=== PATIENT | female | born 2000 | race American Indian/Alaskan Native ===

== ENCOUNTER 2021-01-20 15:15 | Outpatient (CLI) | payer MEDICAID ==
[2021-01-20] MEDS ORDERED: LACTATED RINGERS 500 ML IV ONE (16:30)
[2021-01-20 16:44] VITALS: BP 104/50
[2021-01-20 18:02] LABS: Bilirubin,Urine NEG (Negative); Blood,Urine NEG (Negative); Color,Urine Straw (Yellow); Protein,Urine <15 mg/dL mg/dL (Negative); Urobilinogen,Urine < 2.0 mg/dL (<2.0); WBC,Urine < 1.0 /HPF (0.0-6.0)
== END 2021-01-20 17:00 | disposition home or self-care (01) ==
LOC: TRG 15:15 → APU 16:31 → TRG 17:00
PROVIDERS: ATTEND Obstetrics & Gynecology
DX: Z34.93 Encounter for supervision of normal pregnancy, unspecified, third trimester (principal); Z3A.35 35 weeks gestation of pregnancy
CPT/HCPCS: 59025; 81001

== ENCOUNTER 2021-01-29 05:36 | Outpatient (CLI) | payer MEDICAID ==
[2021-01-29 08:34] VITALS: BP 107/65
== END 2021-01-29 09:19 | disposition home or self-care (01) ==
LOC: TRG 05:36 → APU 05:43 → TRG 09:19
PROVIDERS: ATTEND Obstetrics & Gynecology
DX: Z34.93 Encounter for supervision of normal pregnancy, unspecified, third trimester (principal); Z3A.37 37 weeks gestation of pregnancy
CPT/HCPCS: 59025

== ENCOUNTER 2021-02-16 11:39 | Outpatient (CLI) | payer MEDICAID ==
[2021-02-16 12:25] VITALS: BP 117/70
[2021-02-16 13:21] LABS: Bacteria,Urine 1+ /HPF (Negative); Bilirubin,Urine NEG (Negative); Blood,Urine NEG (Negative); Color,Urine Yellow (Yellow); Mucus,Urine FEW /HPF; Protein,Urine <15 mg/dL mg/dL (Negative); Urobilinogen,Urine < 2.0 mg/dL (<2.0)
[2021-02-16] MEDS ORDERED: LIDOCAINE-MPF (1%) 10 MG/1 ML VIAL 5 ML INFILTRATI NR (13:30)
== END 2021-02-16 14:20 | disposition home or self-care (01) ==
LOC: TRG 11:39 → APU 11:40 → TRG 14:20
PROVIDERS: ATTEND Obstetrics & Gynecology
DX: O26.893 Other specified pregnancy related conditions, third trimester (principal); R10.2 Pelvic and perineal pain; M54.9 Dorsalgia, unspecified; Z3A.39 39 weeks gestation of pregnancy
CPT/HCPCS: 59025; 81001; 96372; J0696

== ENCOUNTER 2021-02-17 01:54 | Outpatient (CLI) | payer MEDICAID ==
[2021-02-17 02:05] VITALS: BP 128/69
[2021-02-17] MEDS ORDERED: ACETAMINOPHEN 500 MG TAB PO ONE (02:36)
== END 2021-02-17 03:11 | disposition home or self-care (01) ==
LOC: TRG 01:54 → APU 01:56 → TRG 03:11
PROVIDERS: ATTEND Obstetrics & Gynecology
DX: Z34.93 Encounter for supervision of normal pregnancy, unspecified, third trimester (principal); Z3A.39 39 weeks gestation of pregnancy
CPT/HCPCS: 59025

== ENCOUNTER 2021-02-21 14:30 | Outpatient (CLI) | payer MEDICAID ==
[2021-02-21 17:07] VITALS: BP 120/67
--- NOTE | 2021-02-21 18:45 | Ultrasound Report ---
US OB BPP wo non-stress, US OB limited INDICATION / CLINICAL INFORMATION: BRENNAN AND BPP. COMPARISON: None available. FINDINGS: Single live intrauterine . BREATHING MOVEMENT = 2 GROSS BODY MOVEMENT = 2 TONE = 2 QUALITATIVE AMNIOTIC FLUID VOLUME = 2 TOTAL BIOPHYSICAL SCORE = 8/8 AMNIOTIC FLUID INDEX (cm) = 12.6 cm, within normal limits. PRESENTATION: Cephalic. HEART RATE (beats per minute): 137 IMPRESSION: 1. Single live intrauterine in cephalic presentation. 2. biophysical profile = 02/14 3. BRENNAN is normal, measuring 12.6 cm. Signer Name: Rahul Rod MD Signed: 02/21/2021 6:41 PM Workstation Name: [id number]
== END 2021-02-21 18:03 | disposition home or self-care (01) ==
LOC: TRG 14:30 → APU 14:31 → TRG 18:03
PROVIDERS: ATTEND Obstetrics & Gynecology
DX: O26.893 Other specified pregnancy related conditions, third trimester (principal); R10.9 Unspecified abdominal pain; Z3A.40 40 weeks gestation of pregnancy
CPT/HCPCS: 76815; 76819

== ENCOUNTER 2021-02-25 15:50 | Outpatient (CLI) | payer MEDICAID ==
[2021-02-25] MEDS ORDERED: ACETAMINOPHEN 500 MG TAB PO ONE (17:15)
--- NOTE | 2021-02-25 18:19 | Ultrasound Report ---
ULTRASOUND BIOPHYSICAL PROFILE INDICATION / CLINICAL INFORMATION: well-being. COMPARISON: 02/21/2021 FINDINGS: BREATHING MOVEMENT = 2 GROSS BODY MOVEMENT = 2 TONE = 2 QUALITATIVE AMNIOTIC FLUID VOLUME = 2 TOTAL BIOPHYSICAL SCORE = 02/14 AMNIOTIC FLUID INDEX (cm) = 18.2 PRESENTATION: Cephalic. HEART RATE (beats per minute): 135 IMPRESSION: 1. biophysical profile = 02/14 Signer Name: Malachi Murphy MD Signed: 02/25/2021 6:14 PM Workstation Name: [email or web address]
[2021-02-25 19:07] VITALS: BP 131/69
== END 2021-02-25 20:35 | disposition home or self-care (01) ==
LOC: TRG 15:50 → APU 15:52 → TRG 20:35
PROVIDERS: ATTEND Obstetrics & Gynecology
DX: O42.92 Full-term premature rupture of membranes, unspecified as to length of time between rupture and onset of labor (principal); Z3A.40 40 weeks gestation of pregnancy
CPT/HCPCS: 36415; 59025; 76815; 76819; 84112